=== PATIENT | female | born 1995 | race American Indian/Alaskan Native ===

== ENCOUNTER 2021-02-11 03:09 | Emergency (ER) | payer SELFPAY ==
[2021-02-11] MEDS ORDERED: ONDANSETRON 4 MG ODT TAB PO ONE (04:41)
[2021-02-11] MEDS ORDERED: ACETAMINOPHEN 500 MG TAB PO ONE (04:41)
[2021-02-11] MEDS ORDERED: SODIUM CHLORIDE 0.9% 1000 ML 1,000 ML IV ONE (04:50)
[2021-02-11] MEDS ORDERED: ONDANSETRON 4 MG/2 ML INJ IV ONE (04:50)
[2021-02-11 05:45] LABS: Hematocrit 39.4 % (30.3-42.9); Hemoglobin 12.9 gm/dl (10.1-14.3); Mean Corpuscular HGB Conc 33 % (30-34); Mean Corpuscular Volume 89 fl (79-97); Platelet Count 432 K/mm3 (140-440); Red Blood Count 4.43 M/mm3 (3.65-5.03); Red Cell Distribution Width 14.6 % (13.2-15.2)
[2021-02-11 05:47] LABS: Alanine Aminotransferase 11 units/L (7-56); Albumin 4.8 g/dL (3.9-5); Blood Urea Nitrogen 8 mg/dL (7-17); Calcium 9.4 mg/dL (8.4-10.2); Hemolysis Index 8
[2021-02-11 05:50] LABS: BUN/Creatinine Ratio 13
[2021-02-11 06:21] LABS: Bilirubin,Urine NEG (Negative); Blood,Urine NEG (Negative); Color,Urine Yellow (Yellow); Mucus,Urine 2+ /HPF; Urobilinogen,Urine < 2.0 mg/dL (<2.0)
[2021-02-11] MEDS ORDERED: KETOROLAC 30 MG/1 ML INJ IV ONE (06:21)
[2021-02-11 06:53] VITALS: BP 125/73
--- NOTE | 2021-02-11 06:56 | Emergency Department Report ---
ED General Adult HPI - General Chief complaint: Headache Stated complaint: HEADACHE,NAUSEA Time Seen by Provider: 02/11/21 06:03 Source: patient Mode of arrival: Stretcher Limitations: No Limitations - History of Present Illness Initial comments: Patient presents with multiple issues including headache, generalized body aches, myalgias, and malaise. This is been present for 1 day. She took Tylenol and decided to come here by ambulance because of this. There has been a slight cough with congestion. There is no vomiting. She has no diarrhea. Patient denies urinary symptoms or rash. She has had no known sick contact. She just did not feel well so she came here by ambulance. Severity scale (0 -10): 4 - Related Data Previous Rx's Medication Instructions Recorded Last Taken Type Ibuprofen [Motrin] 600 mg PO Q8H PRN #20 tablet 02/11/21 Unknown Rx Ondansetron [Zofran ODT TAB] 8 mg PO Q8HR PRN #20 tab.rapdis 02/11/21 Unknown Rx Allergies Allergy/AdvReac Type Severity Reaction Status Date / Time No Known Allergies Allergy Verified 02/11/21 03:32 ED Review of Systems ROS: Stated complaint: HEADACHE,NAUSEA Other details as noted in HPI Comment: All other systems reviewed and negative Constitutional: see HPI Eyes: denies: eye pain ENT: denies: epistaxis Respiratory: denies: shortness of breath Cardiovascular: denies: chest pain Endocrine: denies: unexplained weight loss Gastrointestinal: denies: abdominal pain Genitourinary: denies: dysuria Musculoskeletal: as per HPI Skin: denies: rash Neurological: denies: headache Hematological/Lymphatic: denies: easy bruising ED Past Medical Hx - Past Medical History Previous Medical History?: No - Family History Family history: no significant - Medications Home Medications: Home Medications Medication Instructions Recorded Confirmed Last Taken Type Ibuprofen [Motrin] 600 mg PO Q8H PRN #20 tablet 02/11/21 Unknown Rx Ondansetron [Zofran ODT TAB] 8 mg PO Q8HR PRN #20 tab.rapdis 02/11/21 Unknown Rx ED Physical Exam - General Limitations: No Limitations, Other ( Pulse ox noted and normal) General appearance: alert, in no apparent distress - Head Head exam: Present: atraumatic, normocephalic - Eye Eye exam: Present: normal appearance, EOMI - ENT ENT exam: Present: normal orophraynx, normal external ear exam - Neck Neck exam: Present: normal inspection. Absent: meningismus - Respiratory Respiratory exam: Present: normal lung sounds bilaterally. Absent: respiratory distress - Cardiovascular Cardiovascular Exam: Present: normal rhythm, tachycardia - GI/Abdominal GI/Abdominal exam: Present: soft. Absent: tenderness - Extremities Exam Extremities exam: Present: normal capillary refill - Back Exam Back exam: Absent: CVA tenderness (R), CVA tenderness (L) - Neurological Exam Neurological exam: Present: alert, oriented X3, CN II-XII intact, normal gait. Absent: motor sensory deficit - Psychiatric Psychiatric exam: Present: normal affect, normal mood - Skin Skin exam: Present: warm, dry ED Course Vital Signs 02/11/21 02/11/21 03:32 06:53 Temperature 99.5 F Pulse Rate 120 H 89 Respiratory 18 16 Rate Blood Pressure 148/84 125/73 [Left] O2 Sat by Pulse 99 100 Oximetry - Reevaluation(s) Reevaluation #1: 02/11/21 07:24 labs are noted. Old records reviewed. Patient was discharged. ED Medical Decision Making - Lab Data Result diagrams: 02/11/21 05:04 02/11/21 05:04 Rhythm strip: Sinus tachycardia without ectopy. Monitor observe 10 seconds. - Medical Decision Making Patient presents with a constellation of viral symptoms. This seems to be respiratory in nature. This could very well be coronavirus. Regardless, we are not actively doing outpatient testing as we do not have resources for this at this time. Patient does not appear to be toxic. She is not hypoxic. She certainly would not require admission. There are no adventitious breath sounds to suggest pneumonia. She does not have meningeal signs on exam. Patient does not have any known influenza exposure. Critical Care Time: No Critical care attestation.: If time is entered above; I have spent that time in minutes in the direct care of this critically ill patient, excluding procedure time. ED Disposition Clinical Impression: Generalized headache, Myalgia, Acute URI Disposition: HOME / SELF CARE / HOMELESS Is pt being admited?: No Condition: Stable Instructions: Upper Respiratory Infection, Adult, Form - Headache Record, Viral Respiratory Infection Additional Instructions: Push fluids. Use Tylenol for fever. Return for problems. Follow-up with your regular doctor. Get an outpatient Covid test done. Prescriptions: Ibuprofen [Motrin] 600 mg PO Q8H PRN #20 tablet PRN Reason: Pain Ondansetron [Zofran ODT TAB] 8 mg PO Q8HR PRN #20 tab.rapdis PRN Reason: Nausea Referrals: PRIMARY CARE, [Referring] - 3-5 Days AZALIA WATTERS MD [Staff Physician] - 3-5 Days
[2021-02-11 10:10] LABS: Large Platelets Few; Platelet Estimate Consistent w Auto; RBC Morphology Normal; Total Cells Counted 100
== END 2021-02-11 07:53 | disposition home or self-care (01) ==
LOC: ED 03:09
DX: J06.9 Acute upper respiratory infection, unspecified (principal); R51.9 Headache, unspecified; M79.10 Myalgia, unspecified site
CPT/HCPCS: 36415; 80053; 81001; 83690; 84703; 85007; 85025; 96374; 96375; 99284; J1885; J2405; J7030; Q0162